=== PATIENT | female | born 1985 | race Hispanic/Latino ===

== ENCOUNTER 2017-07-12 22:35 | Emergency (ER) | payer OTHER ==
[2017-07-12 22:35] VITALS: BMI 36.5
[2017-07-12 22:44] VITALS: O2SAT 100
[2017-07-12] MEDS ORDERED: Oxycodone/Acetaminophen 5/325 mg Tab PO ONE ×2 (23:03→23:31)
--- NOTE | 2017-07-12 23:10 | ED PDOC ---
HPI: Abdomen Time Seen by Provider: 07/12/17 22:46 Chief Complaint (Nursing): Abdominal Pain Chief Complaint (Provider): abdominal pain History Per: Patient History/Exam Limitations: no limitations Onset/Duration Of Symptoms: Hrs (3) Current Symptoms Are (Timing): Still Present Location Of Pain/Discomfort: LLQ Quality Of Discomfort: Sharp, "Pain" Additional History Per: Patient Additional Complaint(s): 31 y/o female presents with acute onset left lower abdominal pain x 3 hours. Patient states she had similar pain a month back for which she was evaluated at [facility] ED and had a negative CT, but notes pain to be more intense tonight, now radiating across lower abdome. Denies fever, nausea/vomiting, chest pain, shortness of breath, changes in bowel movements, urinary symptoms. Abnormal Vaginal Bleeding: No Last Menstral Period: now Past Medical History Reviewed: Historical Data, Nursing Documentation, Vital Signs Vital Signs: Last Vital Signs Temp 97.2 F L 07/12/17 22:40 Pulse 108 H 07/12/17 22:40 Resp 20 07/12/17 22:40 BP 135/88 07/12/17 22:40 Pulse Ox 100 07/13/17 00:07 - Medical History PMH: Cardia Arrhythmia (svt, had cardiac ablation), Diverticulitis, Hypothyroidism, Kidney Stones, Chronic Kidney Disease Denies: Depression - Surgical History Surgical History: Appendectomy, Cholecystectomy - Family History Family History: States: No Known Family Hx - Living Arrangements Living Arrangements: Alone - Immunization History Hx Tetanus Toxoid Vaccination: No Hx Influenza Vaccination: Yes Hx Pneumococcal Vaccination: No - Home Medications Home Medications: Ambulatory Orders Medication Instructions Recorded Levothyroxine Sodium [Synthroid] 0.025 mg PO DAILY 04/05/12 Canagliflozin [Invokana] 300 mg PO DAILY 06/14/17 MetFORMIN [glucOPHAGE] 1,000 mg PO DAILY 06/14/17 Venlafaxine [Effexor XR] 150 mg PO DAILY 06/14/17 Metronidazole [Flagyl] 500 mg PO TID #21 tablet 06/15/17 Ondansetron ODT [Zofran ODT] 1 odt PO BID PRN #6 odt 06/15/17 Dicyclomine [Bentyl] 20 mg PO TID PRN #21 tab 07/13/17 - Allergies Allergies/Adverse Reactions: Allergies Allergy/AdvReac Type Severity Reaction Status Date / Time aspirin Allergy ANAPHYLAXIS Verified 07/12/17 22:39 ketorolac [From Toradol] Allergy ANAPHYLAXIS Verified 07/12/17 22:39 Penicillins Allergy RASH Verified 07/12/17 22:39 ct scan dye Allergy ITCHING Uncoded 07/12/17 22:39 Review of Systems ROS Statement: Except As Marked, All Systems Reviewed And Found Negative Gastrointestinal: Positive for: Abdominal Pain Physical Exam - Reviewed Nursing Documentation Reviewed: Yes Vital Signs Reviewed: Yes - Physical Exam Appears: Positive for: Well, Non-toxic, Uncomfortable Head Exam: Positive for: ATRAUMATIC, NORMAL INSPECTION, NORMOCEPHALIC Skin: Positive for: Normal Color Eye Exam: Positive for: Normal appearance ENT: Positive for: Normal ENT Inspection Cardiovascular/Chest: Positive for: Regular Rate, Rhythm Respiratory: Positive for: Normal Breath Sounds Gastrointestinal/Abdominal: Positive for: Bowel Sounds, Soft, Tenderness (left lower quadrant, mild suprapubic) Back: Positive for: Normal Inspection Extremity: Positive for: Normal ROM Neurologic/Psych: Positive for: Alert, Oriented - Laboratory Results Result Diagrams: 07/12/17 23:50 07/12/17 23:50 - ECG O2 Sat by Pulse Oximetry: 100 - Progress ED Course And Treament: labs, u/s, pelvic u/s, percocet PO EXAM: US Pelvis Complete, Transabdominal US Pelvis, Transvaginal CLINICAL HISTORY: 31 years old, female; Pain; Pelvic pain; Additional info: Left lower pain TECHNIQUE: Real-time transabdominal and transvaginal pelvic ultrasound (complete) with image documentation. Transvaginal imaging was used for better evaluation of the endometrium and adnexa. COMPARISON: No relevant prior studies available. FINDINGS: Uterus/cervix: Unremarkable in echogenicity and size measuring 7.9 x 3.6 x 5.0 cm. Normal endometrial stripe thickness, measuring 6 mm. No myometrial mass. Right ovary: Unremarkable in echogenicity and size measuring 3.6 x 1.6 x 2.8 cm. No mass. Normal blood flow. Left ovary: Unremarkable in echogenicity and size measuring 2.0 x 1.1 x 1.9 cm. No mass. Normal blood flow. Free fluid: No free fluid. IMPRESSION: Unremarkable sonographic evaluation of the pelvis, as detailed above. Patient still with pain on re-eval, CT ordered, IV dilaudid ordered EXAM: CT Abdomen and Pelvis With Intravenous Contrast EXAM DATE/TIME: 07/13/2017 12:06 AM CLINICAL HISTORY: 31 years old, female; Pain; Abdominal pain; Localized; Left lower quadrant (llq) ; Prior surgery; Surgery date: 6+ months; Surgery type: Gall bladder removed. Appendectomy. C- section; Additional info: Left lower abd pain TECHNIQUE: Axial computed tomography images of the abdomen and pelvis with intravenous contrast. All CT scans at this facility use one or more dose reduction techniques, viz.: automated exposure control; ma/kV adjustment per patient size (including targeted exams where dose is matched to indication; i.e. head); or iterative reconstruction technique. Coronal and sagittal reformatted images were created and reviewed. CONTRAST: 95 mL of [id number] administered intravenously. COMPARISON: PELVIS/TRANSVAG US 2017-07-12 23:04 FINDINGS: Cholecystectomy clips are present. The liver is normal. The spleen is normal. The pancreas is normal. No hydronephrosis or perinephric stranding. The terminal ileum is slightly distended with stool/fluid. No wall thickening or stranding in the surrounding fat. Colonic diverticulosis is present. Appendectomy. Ovarian follicles are noted. IMPRESSION: No acute findings. Patient educated on findings, discharged with rx Bentyl Follow up GI. Return to ED for worsening/concerning symptoms. Disposition - Clinical Impression Clinical Impression: Abdominal pain - Patient ED Disposition Is Patient to be Admitted: No Counseled Patient/Family Regarding: Studies Performed, Diagnosis, Need For Followup, Rx Given - Disposition Referrals: Romaine LANDRY,MD Camila [Medical Doctor] - Disposition: Routine/Home Disposition Time: 04:04 Condition: IMPROVED Prescriptions: Dicyclomine [Bentyl] 20 mg PO TID PRN #21 tab PRN Reason: Pain, Mild (1-3) Instructions: Abdominal Pain (ED) Forms: [employer] (Belarusian)
[2017-07-12 23:25] LABS: RBC URINE 96 /hpf (0-3); URINE BACTERIA RARE (<OCC); URINE BILIRUBIN NEGATIVE (NEGATIVE); URINE BLOOD LARGE (NEGATIVE); URINE COLOR YELLOW (YELLOW); URINE GLUCOSE (UA) >=500 mg/dL (Normal); URINE KETONE TRACE mg/dL (NEGATIVE); URINE LEUKOCYTE ESTERASE NEG Leu/uL (Negative); URINE PROTEIN NEGATIVE (NEGATIVE); URINE UROBILINOGEN 0.2-1.0 mg/dL (0.2-1.0)
[2017-07-12 23:27] LABS: WBC URINE 3 /hpf (0-5)
[2017-07-12] MEDS ORDERED: Oxycodone/Acetaminophen 5/325 mg Tab ONE (23:33)
--- NOTE | 2017-07-12 23:46 | US ---
EXAM: US Pelvis Complete, Transabdominal US Pelvis, Transvaginal CLINICAL HISTORY: 31 years old, female; Pain; Pelvic pain; Additional info: Left lower pain TECHNIQUE: Real-time transabdominal and transvaginal pelvic ultrasound (complete) with image documentation. Transvaginal imaging was used for better evaluation of the endometrium and adnexa. COMPARISON: No relevant prior studies available. FINDINGS: Uterus/cervix: Unremarkable in echogenicity and size measuring 7.9 x 3.6 x 5.0 cm. Normal endometrial stripe thickness, measuring 6 mm. No myometrial mass. Right ovary: Unremarkable in echogenicity and size measuring 3.6 x 1.6 x 2.8 cm. No mass. Normal blood flow. Left ovary: Unremarkable in echogenicity and size measuring 2.0 x 1.1 x 1.9 cm. No mass. Normal blood flow. Free fluid: No free fluid. IMPRESSION: Unremarkable sonographic evaluation of the pelvis, as detailed above.
[2017-07-13 00:01] LABS: BASO # 0.1 K/uL (0.0-0.2); BASO % 1.1 % (0.0-2.0); EOS # 0.1 K/uL (0.0-0.7); EOS % 1.4 % (0.0-4.0); HEMATOCRIT 38.8 % (34.0-47.0); LYMPH # 2.4 K/uL (1.0-4.3); LYMPH % 44.2 % (20.0-40.0); MEAN CELL VOLUME 80.2 fl (81.0-99.0); MEAN CORPUSCULAR HEMOGLOBIN 27.1 pg (27.0-31.0); MEAN CORPUSCULAR HGB CONC 33.7 g/dL (33.0-37.0); MEAN PLATELET VOLUME 7.7 fl (7.2-11.7); MONO # 0.6 K/uL (0.0-0.8); MONO % 10.6 % (0.0-10.0); NEUT # 2.3 K/uL (1.8-7.0); NEUT % 42.7 % (50.0-75.0); NRBC % 0.2 % (0.0-0.0); RED CELL DISTRIBUTION WIDTH 15.9 % (11.5-14.5); WHITE BLOOD COUNT 5.4 K/uL (4.8-10.8)
[2017-07-13] MEDS ORDERED: Iohexol 240 (50 ml) PO ONE (00:06)
[2017-07-13] MEDS ORDERED: HYDROmorphone 0.5 mg/0.5 ml ISec IVP STA ×2 (00:09→00:24)
[2017-07-13 00:10] LABS: ALB/GLOB RATIO 1.4 (1.0-2.1); ALKALINE PHOSPHATASE 64 U/L (38-126); ALT/SGPT 44 U/L (9-52); AST/SGOT 31 U/L (14-36); BILIRUBIN,TOTAL 0.2 mg/dl (0.2-1.3); BLOOD UREA NITROGEN 17 mg/dl (7-17); CALCIUM 8.9 mg/dL (8.4-10.2); CARBON DIOXIDE 24 mmol/L (22-30); CHLORIDE 104 mmol/L (98-107); GFR AFRICAN-AMERICAN > 60; GLUCOSE,RANDOM 143 mg/dL (65-105); POTASSIUM 3.8 MMOL/L (3.6-5.0); SODIUM 140 mmol/l (132-148); TOTAL PROTEIN 7.6 G/DL (6.3-8.2)
[2017-07-13] MEDS ORDERED: HYDROmorphone 0.5 mg/0.5 ml ISec ONE (00:24)
[2017-07-13] MEDS ORDERED: DiphenhydrAMINE 50 mg/ml Inj IV ONE (00:27)
[2017-07-13] MEDS ORDERED: Iohexol 240 (50 ml) ONE (00:34)
[2017-07-13] MEDS ORDERED: Sodium Chloride 0.9% 1,000 ML IV STA (00:44)
[2017-07-13] MEDS ORDERED: Sodium Chloride 0.9% 50 ML IV ONE (02:44)
[2017-07-13] MEDS ORDERED: Iodixanol 320 MG/ML 100 ML BOTTLE IV ONE (02:44)
--- NOTE | 2017-07-13 03:55 | CT ---
EXAM: CT Abdomen and Pelvis With Intravenous Contrast EXAM DATE/TIME: 07/13/2017 12:06 AM CLINICAL HISTORY: 31 years old, female; Pain; Abdominal pain; Localized; Left lower quadrant (llq); Prior surgery; Surgery date: 6+ months; Surgery type: Gall bladder removed. Appendectomy. ; Additional info: Left lower abd pain TECHNIQUE: Axial computed tomography images of the abdomen and pelvis with intravenous contrast. All CT scans at this facility use one or more dose reduction techniques, viz.: automated exposure control; ma/kV adjustment per patient size (including targeted exams where dose is matched to indication; i.e. head); or iterative reconstruction technique. Coronal and sagittal reformatted images were created and reviewed. CONTRAST: 95 mL of [id number] administered intravenously. COMPARISON: PELVIS/TRANSVAG US 2017-07-12 23:04 FINDINGS: Cholecystectomy clips are present. The liver is normal. The spleen is normal. The pancreas is normal. No hydronephrosis or perinephric stranding. The terminal ileum is slightly distended with stool/fluid. No wall thickening or stranding in the surrounding fat. Colonic diverticulosis is present. Appendectomy. Ovarian follicles are noted. IMPRESSION: No acute findings.
[2017-07-13 04:36] VITALS: BP 124/71; PULSE 89; RESP 18; TEMP 97.1
== END 2017-07-13 04:23 | disposition home or self-care (01) ==
LOC: H.ER 22:35
DX: N83.00 Follicular cyst of ovary, unspecified side (principal); E03.9 Hypothyroidism, unspecified; I47.1 Supraventricular tachycardia; Z87.442 Personal history of urinary calculi; Z88.0 Allergy status to penicillin
CPT/HCPCS: 74177; 76830; 76856; 80053; 80324; 80345; 80346; 80349; 80353; 80358; 80361; 81003; 81025; 83992; 85025; 96361; 96374; 96375; 99283; J1170; J1200; J2405; J7040; Q9966; Q9967

== ENCOUNTER 2017-10-18 04:11 | Emergency (ER) | payer SELFPAY ==
[2017-10-18 04:28] VITALS: BP 150/93; PULSE 107; RESP 17; TEMP 97.9; O2SAT 99
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
== END 2017-10-18 04:39 | disposition home or self-care (01) ==
LOC: H.ER 04:11
DX: R10.13 Epigastric pain (principal)